=== PATIENT | male | born 1950 | race Caucasian/White ===

== ENCOUNTER 2016-09-28 17:44 | Inpatient (IN) | payer MEDICARE, BC ==
--- NOTE | ~2016-09-28 | OP ---
Record Of Operation [facility] [address] [place]. [address] NAME: AAKASH CLEMENT : 54 STATUS : DIS IN PAT#: [id number] AGE: 66 ADM/REG DATE : 09/28/16 MR#: [id number] REPORT SERV DATE: 10/09/16 DICTATED BY: AMBER MARRERO DATE: 10/09/16 REPORT STATUS : Draft TRANSCRIBED BY: MODL DATE: 10/09/16 DATE OF PROCEDURE: 10/04/2016 PREOPERATIVE DIAGNOSES: 1. Right foot abscess. 2. Right foot necrotic ulceration to the level of the deep fascia and flexor tendons. POSTOPERATIVE DIAGNOSES: 1. Right foot abscess. 2. Right foot necrotic ulceration to the level of the deep fascia and flexor tendons. PROCEDURE: 1. Right foot incision and drainage of deep space abscess. 2. Right full-thickness debridement of necrotic tissue down to the level of the flexor tendons. SURGEON: Erik BhattiPZion ANESTHESIA: General and local anesthetic. ESTIMATED BLOOD LOSS: Minimal. COMPLICATION: None. INJECTABLES: Approximately 10 mL of a 1:1 mixture of Xylocaine plain and 0.5% Marcaine plain. MATERIALS: Include 1/2-inch Nu-Gauze packing and 0 nylon, well-padded sterile dressing. PROCEDURE IN DETAIL: Under mild sedation, the patient was brought to the operating room and placed on the operating table in supine position. Following general anesthesia, local anesthesia was obtained about the patient's right foot and ankle. Right foot, ankle, and lower leg were scrubbed, prepped, and draped in usual aseptic manner. Attention was directed to the procedure. Procedure #1 is right foot incision and drainage. Attention was directed to the plantar aspect of the patient's right foot, where the necrotic ulceration was visualized. A linear 3 cm incision was made overlying the area of the plantar central medial aspect of the forefoot. The incision then was continued deep into the subcutaneous tissues, where severe liquified necrotic tissue was visualized. A scant purulence was noted throughout upon compression. Purulence was expressed within the deep central compartment region. Deep cultures were taken and at this time, 3000 mL of pulse lavage ensued within the incision site. After ensuring all purulence had been expressed, attention was directed to the next procedure. Next procedure was right foot full thickness debridement of necrotic liquified tissue down to the level of the flexor tendons. At this time, sharp debridement of all necrotic tissue was performed down to the level of the flexor tendons. After complete Record Of Operation [facility] [address]. [address] NAME: AAKASH CLEMENT : 54 STATUS : DIS IN PAT#: [id number] AGE: 66 ADM/REG DATE : 09/28/16 MR#: [id number] REPORT SERV DATE: 10/09/16 DICTATED BY: AMBER MARRERO DATE: 10/09/16 REPORT STATUS : Draft TRANSCRIBED BY: MODForest DATE: 10/09/16 excision sharply with a 15 blade and rongeur, attention was directed again to further lavage at that time. Next, the retention sutures were placed through the incision site with a central component left of the incision left open for deep packing with moistened 1/2-inch Nu Gauze packing. A well-padded sterile dressing was placed about the patient's right foot and ankle. At this time, Dr. Osuna, who was present at the time of closure continued on with his procedure for limb salvage. The patient tolerated the procedure well and Dr. Osuna will write postoperative orders for his side of things, as the patient was still under anesthesia at this time, a conclusion of my part of the procedure. Orders were written for strict nonweightbearing on the right side and elevation and antibiotics per Infectious Disease. I will follow up the patient on the floor. NEOW/VALDEMAR Medhat Marrero D.P.M. / [id number] CC: MD Mena Henry D.O. F.A.C.P.
--- NOTE | ~2016-09-28 | HP ---
History And Physical [facility] [address] [place]. [address] NAME: AAKASH CLEMENT : 54 STATUS : ADM IN PAT#: [id number] AGE: 66 ADM/REG DATE : 09/28/16 MR#: [id number] REPORT SERV DATE: 09/29/16 DICTATED BY: RAMSES AQUINO DATE: 09/29/16 REPORT STATUS : Draft TRANSCRIBED BY: MODL DATE: 09/29/16 DATE OF ADMISSION: 09/28/2016 CHIEF COMPLAINT: Right foot ulcer, sent from Dr. Zuñiga clinic. HISTORY OF PRESENT ILLNESS: The patient is a 66-year-old male with past history of insulin-dependent diabetes followed by Dr. Goldstein, on insulin pump, additionally CHF and coronary artery disease followed by Dr. Vega, ejection fraction 30%, CKD stage 3 to [address] Selby who presents after approximately a week of having increased swelling and ulcer formation in his lower right leg. The patient does have significant peripheral neuropathy, diabetic neuropathy, and typically having hard times with appreciating when infection occurs. He has had history of cellulitis but never had ulcer formation. Noticed symptoms happening few days ago and started trying with silver cream, anti-inflammatory topical but was having minimal improvement. The patient does additionally reports that he also has poor nail hygiene on his right big toe which could also be a source of infection. The patient does not report any pain, radiating symptoms such as chest pain, but last night he started noticing fevers up to 101.5 and nausea. No shortness of breath, diarrhea, has been fairly compliant with diet, doing well with his diabetic control with his insulin pump and his salt intake is fairly monitored with at bedside. The patient denies any improving symptoms of lower leg swelling but no worsening symptoms either. The patient reports that swelling continues to worsen on right leg greater than left, particularly the site with redness and erythema. The patient does have history of chronic venous stasis changes due to multiple surgeries on legs and trauma as well as vein stripping of right leg which additionally confounders for circulation issues. REVIEW OF SYSTEMS: For additional 10-point review of systems, negative for that noted in the HPI. PAST MEDICAL HISTORY: Systolic CHF, EF 30%; CABG, five-vessel; CKD 3-4; CAMILO; CPAP at home; diabetes type 2 on [address] pump[address] Dr[address] Goldstein for diabetes; Dr. Selby for CKD; Dr. Vega for coronary artery disease; and Dr. Zuñiga for PCP. SURGICAL HISTORY: Left ankle fracture repair, CABG five-vessel disease in 2002, drug-eluting stent, wisdom teeth in 80s. FAMILY HISTORY: Hypertension, coronary artery disease, and diabetes. SOCIAL HISTORY: , retired, disabled from [employer], 2 sons. No tobacco currently but quit many years ago. No alcohol or illicit's. ALLERGIES: PENICILLIN. HOME MEDICATIONS: Tylenol, ProAir, allopurinol, aspirin, Bumex, Coreg, Zyrtec, Plavix, Flonase, guaifenesin, hydralazine, insulin, Imdur, Claritin, multivitamin, and Crestor. History And Physical [address] [address] NAME: AAKASH CLEMENT : 54 STATUS : ADM IN [facility]#: [id number] AGE: 66 ADM/REG DATE : 09/28/16 MR#: [id number] REPORT SERV DATE: 09/29/16 DICTATED BY: RAMSES AQUINO DATE: 09/29/16 REPORT STATUS : Draft TRANSCRIBED BY: VALDEMAR DATE: 09/29/16 PHYSICAL EXAMINATION: VITAL SIGNS: The patient's blood pressure 151/61, temperature 101.1, pulse 109, respirations 18. GENERAL: Obese, but no acute distress. Calm, pleasant. HEAD: Normocephalic, atraumatic. NECK: Large neck. EYES: No scleral icterus. EOMI. ENT: Nares patent. Tongue midline. Moist mucous membranes. CHEST: Equal chest expansion. Respiratory, clear to auscultation. No wheezes. CV: Bilateral trace edema, right greater than left. Right being 1+ edema. Systolic ejection murmur with regular rate, mildly tachycardic. Cap refill less than 2 seconds. ABDOMEN: Central obesity, nontender, nondistended. Bowel sounds positive. MUSCULOSKELETAL: Moves all extremities x4. SKIN: Right foot under first metatarsal base ulcer without drainage currently with what appears to be 4 spots of inflammation with erythema encompassing approximately 40-50% of right-side lower foot and erythema going up to ankle. Left side also has chronic venous stasis changes. NEURO: Alert and oriented, moves all extremities. Sensation decreased chronically in lower extremities but moves all extremities. PSYCH: Appropriate mood and affect. LABS: Wound culture pending. CMP: Procalcitonin 0.21. Sodium 141, potassium 3.9, BUN and creatinine 15 and 2.14, glucose 190, chloride 102. LFTs within normal limits. CBC: WBC count 13.4, H and H 14.3 and 43.0, platelets 220. ASSESSMENT AND PLAN: 1. Right foot ulcer, diabetic. 2. Diabetes type 2, insulin dependent. 3. Congestive heart failure. 4. Chronic kidney disease stage 3, 4. 5. Coronary artery disease. 6. Obstructive sleep apnea. 7. Sepsis. PLAN: 1. For right foot ulcer, Azactam, vancomycin given penicillin history. Consult Dr. Diego for possible surgical evaluation. We will defer to Dr. Diego's guidance for additional imaging if required. 2. Diabetes type 2. Insulin pump. Continue diabetic education. 3. CHF, chronic, stable. Follows with Dr. Vega. EF 30%. Additionally, has coronary artery disease with five-vessel CABG. Monitor fluid balance. 4. CKD stage 3 to 4, stable. Follows with Dr. Selby. Monitor. 5. CAMILO. CPAP at home. Continue at night. 6. Sepsis. IV antibiotics. Does have CHF history. So monitor IV fluid value, sepsis criteria included right foot with fever, leukocytosis, tachycardia. All questions answered. Patient family at bedside. History And Physical [address] [address] NAME: AAKASH CLEMENT : 54 STATUS : ADM IN [facility]#: [id number] AGE: 66 ADM/REG DATE : 09/28/16 MR#: [id number] REPORT SERV DATE: 09/29/16 DICTATED BY: RAMSES AQUINO DATE: 09/29/16 REPORT STATUS : Draft TRANSCRIBED BY: MODL DATE: 09/29/16 DDN/VALDEMAR Ramses Aquino MD / [id number] CC: MD Mena Del Cid D.O. F.A.C.P.
--- NOTE | ~2016-09-28 | IDS ---
Interim Discharge Summary [facility] [address] [place]. [address] NAME: AAKASH CLEMENT : 54 STATUS : ADM IN PAT#: [id number] AGE: 66 ADM/REG DATE : 09/28/16 MR#: [id number] REPORT SERV DATE: 10/04/16 DICTATED BY: RAMSES AQUINO DATE: 10/04/16 REPORT STATUS : Draft TRANSCRIBED BY: MODL DATE: 10/04/16 ADMISSION DATE: 09/28/2016 DISCHARGE DATE: 10/03/2016 CURRENT DIAGNOSES: 1. Right foot diabetic ulcer with polymicrobial infection of Citrobacter Morganella strep species. 2. Vascular insufficient POA, but new diagnosis. 3. Systolic heart failure, chronic. 4. Coronary artery disease with 5-vessel coronary artery bypass graft history. 5. Obstructive sleep apnea on continuous positive airway pressure. 6. Bacterial sepsis present on arrival. CONSULTATIONS: 1. Erik BhattiP.Kilo, Podiatry. 2. Sagar Osuna M.D., Vascular Surgery. CURRENT HOSPITAL COURSE: The patient is a very pleasant 66-year-old male with past medical history of Crohn's disease, systolic heart failure, obstructive sleep apnea on CPAP, insulin-dependent diabetes on insulin pump, who presents after having progressive right foot ulcer at the base of the first toe, had persistent drainage and redness up to ankle. The patient was started on broad antibiotics for diabetic foot ulcer. Dr. Croft was consulted, has done multiple bedside debridements for drainage. Vascular integrity was evaluated and required Vascular Surgery evaluation to have further workup intraoperatively in correlation with Dr. Croft for vascular arteriogram and subsequent debridement intraoperatively as the patient was noted to have vascular insufficiency based on Dopplers. The patient does have history of chronic systolic heart failure, and coronary artery disease which have remained stable intraoperatively and continued on home medications. CAMILO, was continued on CPAP. The patient does continue the insulin pump with insulin-dependent diabetes with good control while inpatient. The patient's bacterial sepsis was present on arrival and symptoms have improved throughout hospital stay with continued improvement of leukocytosis, now afebrile. No tachycardia and no tachypnea. DISPOSITION: Pending surgical procedure and response. DDN/MODL Ramses Aquino MD / [id number] CC: Ramses Aquino MD Interim Discharge Summary [address] [place]. [address] NAME: AAKASH CLEMENT : 54 STATUS : ADM IN PAT#: [id number] AGE: 66 ADM/REG DATE : 09/28/16 MR#: [id number] REPORT SERV DATE: 10/04/16 DICTATED BY: RAMSES AQUINO DATE: 10/04/16 REPORT STATUS : Draft TRANSCRIBED BY: MODL DATE: 10/04/16 Mena Zuñiga D.O. F.A.C.P.
--- NOTE | ~2016-09-28 | CN ---
Consultation Report [facility] [address] [place]. [address] NAME: AAKASH CLEMENT : 54 STATUS : ADM IN PAT#: [id number] AGE: 66 ADM/REG DATE : 09/28/16 MR#: [id number] REPORT SERV DATE: 09/30/16 DICTATED BY: AMBER MARRERO DATE: 09/30/16 REPORT STATUS : Draft TRANSCRIBED BY: MODL DATE: 09/30/16 CONSULTATION DATE OF CONSULTATION: 09/29/2016 REASON FOR CONSULTATION: Right foot cellulitis/abscess. HISTORY OF PRESENT ILLNESS: The patient is a 66-year-old male with an approximate "two-week history of an ulceration to the plantar aspect of his right foot." The patient relates previous attempts at debriding his own callus, and over the past two weeks, has developed redness, streaking, fevers, nausea, and vomiting. He was subsequently admitted after seeing his primary care physician. PAST MEDICAL HISTORY: Includes coronary artery disease, congestive heart failure, diabetes, chronic renal insufficiency, obesity. MEDICATIONS: Lengthy list of medications were reviewed in the chart. ALLERGIES: PENICILLIN. FAMILY HISTORY: Includes heart disease, diabetes. SOCIAL HISTORY: The patient is disabled, is , previous smoker. No history of alcohol or illicit drug use. REVIEW OF SYSTEMS: No other pertinent findings on review of systems. Currently, no nausea, vomiting, fever, or chills. No current chest pain. PHYSICAL EXAMINATION: GENERAL: The patient is seen at bedside, resting comfortably. Alert and oriented x3. VITAL SIGNS: The patient is currently afebrile. Vital signs stable. HEENT: Normocephalic, atraumatic. No visible drainage. LUNGS: Unlabored breathing with normal respiratory effort. CARDIOVASCULAR: Right pulses are nonpalpable to the dorsalis pedis possibly due to the significant swelling to the dorsum of his foot. His posterior tib pulse can be palpated at approximately 1/4. Capillary refill time is less than 3 seconds. Regular rate. ABDOMEN: The patient is obese. DERMATOLOGICAL: Plantar right foot what appears to be superficial abscess and callus formation to the first metatarsal head with the epidermolysis/abscess oriented toward the second metatarsal. There is significant edema and proximal streaking past the ankle. There is no soft tissue crepitus. At this time, bedside debridement ensued. Deroofing of the blister with significant creamy purulence was expressed. Upon deroofing the superficial blister, deeper ulceration and what appeared to be a tracking abscess were visualized. Consultation Report [facility] [address] [place]. [address] NAME: AAKASH CLEMENT : 54 STATUS : ADM IN [facility]#: [id number] AGE: 66 ADM/REG DATE : 09/28/16 MR#: [id number] REPORT SERV DATE: 09/30/16 DICTATED BY: AMBER MARRERO DATE: 09/30/16 REPORT STATUS : Draft TRANSCRIBED BY: VALDEMAR DATE: 09/30/16 Sterile forceps were placed within the wound, and sharp debridement of any necrotic tissue was performed. Purulence was expressed, and upon compression of the foot, approximately 2 mL of purulence was noted. From compression, again after sterile lavage with saline was performed, there was no notable purulence expressed following the incision and drainage and debridement. All necrotic tissue was debrided sharply with pickups and scissors. There was no probing to bone appreciated. Probing was angled from plantar proximal to distal at approximately 1 cm. There was no odor appreciated. NEUROLOGIC: Epicritic sensation is absent bilaterally. LABORATORY DATA: White count 13.4. Blood culture is negative at this point. ASSESSMENT: Right foot ulceration/abscess, eval for osteomyelitis, significant comorbidities. PLAN: At this time, at bedside, sharp debridement with incision and drainage was performed with deep cultures taken including aerobic, anaerobic, acid-fast, fungal gram stain. Lavage with sterile normal saline and a sterile dressing was placed about the patient's right foot and ankle. MRI with contrast was ordered as well as arterial Dopplers to evaluate his vascular status. Infectious Disease order was also written and I will follow the patient. ALLEN/VALDEMAR Medhat Marrero D.P.M. / [id number] CC: MD Mena Del Cid D.O. F.A.C.P.
--- NOTE | ~2016-09-28 | OP ---
Record Of Operation [facility] [address] [place]. [address] NAME: AAKASH CLEMENT : 54 STATUS : ADM IN PAT#: [id number] AGE: 66 ADM/REG DATE : 09/28/16 MR#: [id number] REPORT SERV DATE: 10/07/16 DICTATED BY: SAGAR OSUNA DATE: 10/05/16 REPORT STATUS : Draft TRANSCRIBED BY: MODL DATE: 10/05/16 DATE OF PROCEDURE: 10/04/2016 PREPROCEDURE DIAGNOSES: Nonhealing wounds right foot diabetic, diabetic foot infection. PROCEDURE PERFORMED: 1. Diagnostic angiogram, right lower extremity. 2. Antegrade superficial femoral artery catheterization with angiography, selective catheterization of popliteal artery with angiography. SURGEON: Sagar Osuna M.D. ANESTHESIA: General. COMPLICATIONS: None. INDICATION FOR PROCEDURE: Secondary to this very pleasant, 66-year-old patient of Dr. Trevor Croft being evaluated for a nonhealing wound at the base of the right foot. He is a diabetic with diabetic foot infection. The patient is immediately status post I and D of abscess of the foot. DETAILS OF THE PROCEDURE: The patient was then brought into the endovascular operating room, placed in supine position, prepped and draped in routine sterile fashion with attention to the right leg. The I and D of the abscess was then performed by Dr. Trevor Croft where I assisted. Please see Dr. Croft's notes for complete information. Next, the patient was then re-prepped and draped in routine sterile fashion with attention to the entire right leg and the superficial margin cannulated with a micropuncture needle followed by a wire and a sheath. Arteriogram then demonstrated widely patent proximal SFA. Sheath was then placed. Catheterization was then performed, passing a catheter into the popliteal artery. The arteriogram demonstrated proximal and distal SFA widely patent, proximal and distal popliteal patent, anterior tibial and posterior tibial, patent to lower extremity with PT dominant into the foot, filling the medial and lateral plantar arteries adequately. Flow was also to the pedal arch. This was successful, and this showed no evidence of obstructive pathology in the arterial system. At this point, wires, catheters, and sheaths were then removed. The right groin was enclosed with an Angio-Seal; however, this failed to deploy. There was no Angio-Seal that is deployed in the patient. Direct pressure was then held for 15 minutes. Pressure dressing was applied. The patient tolerated the procedure well. HAL/VALDEMAR Sagar Osuna M.D. / [id number]
--- NOTE | ~2016-09-28 | CN ---
Consultation Report [facility] [address] [place]. [address] NAME: AAKASH CLEMENT : 54 STATUS : ADM IN PAT#: [id number] AGE: 66 ADM/REG DATE : 09/28/16 MR#: [id number] REPORT SERV DATE: 09/30/16 DICTATED BY: MURALI SMALLWOOD DATE: 09/29/16 REPORT STATUS : Draft TRANSCRIBED BY: MODL DATE: 09/29/16 INFECTIOUS DISEASE CONSULTATION DATE OF CONSULTATION: 09/29/2016 REFERRING PHYSICIAN: Dr. Croft, Podiatry. REASON FOR REFERRAL: Evaluation and treatment of foot infection. HISTORY OF PRESENT ILLNESS: The patient is a 66-year-old male with a history of coronary artery disease, congestive heart failure, diabetes mellitus, chronic renal insufficiency, morbid obesity. He developed an ulcer on his plantar right foot after he tried to remove a callus, it is over the first and second metatarsal heads. Recently, it became more red. He developed fevers, nausea, vomiting, and redness that was beginning to go up his calf, so came in and was admitted yesterday. A culture was taken, but not submitted until late in the evening, so no results are back yet, other than the Gram stain which does show a variety of bacteria to include gram-positive cocci, gram-positive bacilli, and gram-negative bacilli. He was started empirically on vancomycin, aztreonam, and Flagyl. He reports an allergy to penicillin that he says, he took it once and his "throat began to close up," but he has taken several different kinds of cephalosporins without incident. He denies any trauma or wounds to the foot, other than what has been previously mentioned. There have been no unusual environmental exposures, and he was on no antibiotics prior to coming in. It has been debrided at the bedside by Dr. Croft. MRI has been ordered to evaluate for deeper disease. PAST MEDICAL HISTORY: Otherwise, unremarkable. MEDICATIONS: As described above. ALLERGIES: DESCRIBED ABOVE. SOCIAL HISTORY: He is currently disabled and not working. He is . He smoked in the past, but stopped many years ago and has no history of alcohol or substance abuse. FAMILY HISTORY: Coronary artery disease and diabetes. PHYSICAL EXAMINATION: GENERAL: Nontoxic adult male, in no acute distress. Alert and oriented x3. VITAL SIGNS: His temperature when he arrived was 101.1, but decreased after that, it is 98.1 at present with a pulse of 77, respirations 18, blood pressure 146/78, weight 145 kg. HEENT: Sclerae clear. No oral lesions. NECK: Supple. LUNGS: Clear. HEART: Regular rate and rhythm. ABDOMEN: Soft and nontender. Positive bowel sounds. Consultation Report [address] [address] NAME: AAKASH CLEMENT : 54 STATUS : ADM IN [facility]#: [id number] AGE: 66 ADM/REG DATE : 09/28/16 MR#: [id number] REPORT SERV DATE: 09/30/16 DICTATED BY: MURALI SMALLWOOD DATE: 09/29/16 REPORT STATUS : Draft TRANSCRIBED BY: VALDEMAR DATE: 09/29/16 EXTREMITIES: The right foot shows the ulcer as previously mentioned, about 3-4 cm wide, it is now clean after being debrided. Redness goes up to the top of his ankle. There are no other open lesions noted. LABORATORY DATA: His white blood cell count 13.4, hematocrit 43, platelets 220, unremarkable differential on the white blood cell count. BUN and creatinine 50 and 2.14. Blood cultures done also and are negative thus far. IMPRESSION: Diabetic foot infection, there is probably mixed kip, uncertain at this time if it is involving bone. RECOMMENDATIONS: 1. Follow up the cultures tomorrow. 2. Follow up the MRI once that is done and if positive for osteomyelitis, he will likely need more extensive debridement. 3. We will cover with vancomycin and Flagyl as has been ordered, but we will use cefepime instead of aztreonam since it is a better drug and I do not think he should have a problem with cephalosporins. 4. Finally, I will follow the patient with you. I appreciate very much your consulting on this patient. LUIS ALFREDO/VALDEMAR Murali Smallwood M.D. / [id number] CC: MD Mena Del Cid D.O. F.A.C.P. C. Trevor Wamack, D.P.M.
--- NOTE | ~2016-09-28 | DS ---
Discharge Summary [facility] [address] [place]. [address] NAME: AAKASH CLEMENT : 54 STATUS : DIS IN PAT#: [id number] AGE: 66 ADM/REG DATE : 09/28/16 MR#: [id number] REPORT SERV DATE: 10/11/16 DICTATED BY: JOHN GONZALEZ DATE: 10/07/16 REPORT STATUS : Draft TRANSCRIBED BY: MODL DATE: 10/07/16 ADMISSION DATE: 09/28/2016 DISCHARGE DATE: 10/07/2016 REASON FOR ADMISSION: Right foot ulcer, sent from Dr. Rosario's clinic. HPI: Please refer Dr. Han's history and physical dated 09/29/2016 for complete details on the patient's admission. In brief, the patient was admitted to the Hospitalist Service for a diabetic foot ulcer. Hospital course fromadmission to 10/03/2016, please refer to Dr. Han's interim summary. In brief, the patient was diagnosed with a diabetic foot ulcer with polymicrobial infection along with some vascular insufficiency. Dr. Trevor Croft with Podiatry had done an I and D, recommended Wound Care to place a wound VAC. Dr. Allison with Infectious Disease had already been consulted and recommended doing two weeks of IV Rocephin. Hospital course from 10/04/2016 to present, I assumed care of this patient from Dr. Han, at which point, his diabetic foot ulcer had been stable. Dr. Allison had written his final recommendations of doing IV Rocephin at home through 10/19/2016, a PICC line was placed, a wound VAC was also placed, and we are awaiting [facility] to deliver a wound VAC for home. Home health has been arranged. The patient has reached maximal hospitalization. He will be discharged to home today in a stable condition. DISCHARGE DIAGNOSES: Right foot diabetic ulcer, status post I and D; vascular insufficiency; chronic systolic heart failure; coronary artery disease, status post 5-vessel bypass; obstructive sleep apnea, on CPAP; sepsis secondary to diabetic foot ulcer, now resolved; insulin for diabetes, on an insulin pump, stable; CKD stage 3. CONSULTANTS: Dr. Trevor Croft, Dr. Sagar Osuan, Dr. Allison with Infectious Disease. IMAGING: Includes MRI of the lower extremity which showed no evidence of underlying osteomyelitis. Lower extremity Doppler which showed mild peripheral arterial disease. DISCHARGE MEDICATIONS: List include Tylenol, allopurinol 150 mg every morning, aspirin 81 mg once a day, Bumex 2 mg twice a day, carvedilol 25 mg twice a day, Plavix 75 mg every morning, Flonase daily, guaifenesin, insulin lispro pump, isosorbide mononitrate 30 mg twice a day, loratadine, Zyrtec, multivitamin, hydralazine 25 mg twice a day, albuterol p.r.n., Crestor 10 mg every morning, Rocephin 2 g once a day through 10/19/2016. He will follow up with Dr. Croft's clinic, Dr. Allison. He will be discharged to home today in stable condition with a PICC line. Spending over 30 minutes of discharge planning and coordination of care. DICTATED BY: John Gonzalez MD Discharge Summary [address] [address] NAME: AAKASH CLEMENT : 54 STATUS : DIS IN PAT#: [id number] AGE: 66 ADM/REG DATE : 09/28/16 MR#: [id number] REPORT SERV DATE: 10/11/16 DICTATED BY: JOHN GONZALEZ DATE: 10/07/16 REPORT STATUS : Draft TRANSCRIBED BY: VALDEMAR DATE: 10/07/16 JAMEE John Gonzalez MD / [id number] CC: MD Mena Henry D.O. F.A.C.P. C. Jason Wamack, D.P.M. Mark Anderson, M.D.
[~2016-09-28 17:44] MED LIST: ACET500CAP PO; APRES25 PO; ASA5GR PO; ASAB PO; ASABAYER PO; BUM2 PO; CENTRUM PO; COREG12 PO; COREG25 PO; CRESTOR10 PO; DIOVAN HCT PO; DYAZIDE1 CAP PO; FENESIN IR400 MG PO; FISH-EPA1000 MG PO; FLONASE NAS; GLUCXL5 PO; HUMAPUMP SC; HYZAAR1 TAB PO; IMDUR30 PO; KRILL OIL; L40 PO; LEVEMIR SC; LOP25 PO; MUCINEX600 MG PO; MULTIPLE VIT PO; MULTIVIT/MIN PO; NITROSTAT0.4 MG SL; NOVLOGPUMP SC; NOVOLOG SC; PLAVIX PO; POT GLUCONAT550 M1 PO; PRAVACHOL40 MG PO; PROAIR HFA INH; TRILIPIX45 MG PO; VITAMIN D31000 UNIT PO; Z100 PO; Z300 PO; [UNRECOGNIZED DRUG - REMARK]; [UNRECOGNIZED DRUG - REMARK]
[2016-09-28] MEDS ORDERED: COREG25 PO ×2 (18:33→20:31)
[2016-09-28] MEDS ORDERED: PLAVIX PO ×2 (18:34→20:32)
[2016-09-28] MEDS ORDERED: CLARIT10 PO ×2 (18:44→20:34)
[2016-09-28] MEDS ORDERED: ZYRTEC ALLGY10 MG PO ×2 (18:45→20:32)
[2016-09-28] MEDS ORDERED: PROAIR HFA INH (20:30)
[2016-09-28] MEDS ORDERED: ACET500CAP PO (20:30)
[2016-09-28] MEDS ORDERED: ASAB PO (20:31)
[2016-09-28] MEDS ORDERED: BUM2 PO (20:31)
[2016-09-28] MEDS ORDERED: Z300 PO (20:31)
[2016-09-28] MEDS ORDERED: FLONASE NAS (20:32)
[2016-09-28] MEDS ORDERED: APRES25 PO (20:33)
[2016-09-28] MEDS ORDERED: HUMAPUMP SC (20:33)
[2016-09-28] MEDS ORDERED: CRESTOR10 PO (20:34)
[2016-09-28] MEDS ORDERED: MULTIVIT/MIN PO (20:34)
[2016-09-28] MEDS ORDERED: IMDUR30 PO (20:34)
[2016-09-28] MEDS ORDERED: FENESIN IR400 MG PO (20:35)
[2016-09-28 22:21] LABS: BASOPHILS 0.1 %; BASOPHILS ABSOLUTE 0.02 10/3/uL (0.0-0.16); EOSINOPHILS 1.4 %; EOSINOPHILS ABSOLUTE 0.19 10/3/uL (0.0-0.53); HEMOGLOBIN 14.3 g/dL (13.6-17.8); IMMATURE GRANULOCYTES 0.2 %; IMMATURE GRANULOCYTES ABSOLUTE 0.03 10/3/uL (0.0-0.11); LYMPHOCYTES 9.3 %; LYMPHOCYTES ABSOLUTE 1.25 10/3/uL (0.67-4.30); MANUAL DIFF NO %; MEAN CORPUS HGB CONC 33.3 g/dL (32.0-36.0); MEAN CORPUSCULAR HEMOGLOB 29.4 pg (26.0-34.0); MEAN CORPUSCULAR VOLUME 88.5 fL (80-100); MEAN PLATELET VOLUME 10.7 fL (9.2-13.0); MONOCYTES 7.3 %; MONOCYTES ABSOLUTE 0.98 10/3/uL (0.21-1.20); NEUTROPHILS 81.7 %; NEUTROPHILS ABSOLUTE 10.92 10/3/uL (2.02-8.40); PLATELET COUNT 220 10/3/uL (150-400); RBC DISTRIBUTION WIDTH 15.1 % (12.0-16.0); RED CELL COUNT 4.86 10/6/uL (4.7-6.1); WHITE BLOOD CELLS 13.4 10/3/uL (4.5-10.5)
[2016-09-28 22:36] LABS: ALBUMIN 3.6 G/DL (3.5-5.0); BUN (BLOOD UREA NITROGEN) 50 MG/DL (6-23); CALCIUM, SERUM 9.2 MG/DL (8.5-10.4); CHLORIDE, SERUM 102 MMOL/L (96-112); CO2 (CARBON DIOXIDE) 32 MMOL/L (24-34); CREATININE 2.14 MG/DL (0.70-1.30); GFR AFRICAN AMERICAN 37 ML/MIN (>=60); GFR NON AFRICAN AMERICAN 32 ML/MIN (>=60); GLOBULIN 3.7 G/DL (2.5-4.1); GLUCOSE, SERUM 190 MG/DL (60-99); POTASSIUM, SERUM 3.9 MMOL/L (3.5-5.3); SGOT(AST) 19 U/L (5-40); SGPT(ALT) 24 U/L (5-65); SODIUM, SERUM 141 MMOL/L (135-148); TOTAL BILIRUBIN 0.6 MG/DL (0-1.2); TOTAL PROTEIN 7.3 G/DL (6.0-8.5)
[2016-09-28 22:37] LABS: ALKALINE PHOSPHATASE 101 U/L (45-117)
[2016-09-28 22:54] LABS: PROCALCITONIN 0.21 ng/mL (<0.5)
[2016-09-30 07:09] LABS: BASOPHILS 0.2 %; BASOPHILS ABSOLUTE 0.02 10/3/uL (0.0-0.16); BUN (BLOOD UREA NITROGEN) 49 MG/DL (6-23); CHLORIDE, SERUM 105 MMOL/L (96-112); CO2 (CARBON DIOXIDE) 30 MMOL/L (24-34); CREATININE 2.03 MG/DL (0.70-1.30); EOSINOPHILS 4.3 %; EOSINOPHILS ABSOLUTE 0.57 10/3/uL (0.0-0.53); GFR AFRICAN AMERICAN 39 ML/MIN (>=60); GFR NON AFRICAN AMERICAN 34 ML/MIN (>=60); HEMATOCRIT 41.6 % (40.0-51.0); HEMOGLOBIN 13.7 g/dL (13.6-17.8); IMMATURE GRANULOCYTES 0.3 %; IMMATURE GRANULOCYTES ABSOLUTE 0.04 10/3/uL (0.0-0.11); LYMPHOCYTES 12.9 %; MEAN CORPUS HGB CONC 32.9 g/dL (32.0-36.0); MEAN CORPUSCULAR HEMOGLOB 28.9 pg (26.0-34.0); MEAN CORPUSCULAR VOLUME 87.8 fL (80-100); MEAN PLATELET VOLUME 10.4 fL (9.2-13.0); MONOCYTES 12.7 %; MONOCYTES ABSOLUTE 1.67 10/3/uL (0.21-1.20); NEUTROPHILS 69.6 %; NEUTROPHILS ABSOLUTE 9.14 10/3/uL (2.02-8.40); PLATELET COUNT 211 10/3/uL (150-400); POTASSIUM, SERUM 4.3 MMOL/L (3.5-5.3); RBC DISTRIBUTION WIDTH 15.2 % (12.0-16.0); RED CELL COUNT 4.74 10/6/uL (4.7-6.1); SODIUM, SERUM 143 MMOL/L (135-148); WHITE BLOOD CELLS 13.1 10/3/uL (4.5-10.5)
[2016-09-30 07:10] LABS: MANUAL DIFF NO %
[2016-09-30 07:11] LABS: GLUCOSE, SERUM 135 MG/DL (60-99)
[2016-10-01 07:00] LABS: BASOPHILS 0.4 %; BASOPHILS ABSOLUTE 0.05 10/3/uL (0.0-0.16); EOSINOPHILS 6.8 %; EOSINOPHILS ABSOLUTE 0.77 10/3/uL (0.0-0.53); HEMATOCRIT 43.4 % (40.0-51.0); HEMOGLOBIN 14.2 g/dL (13.6-17.8); IMMATURE GRANULOCYTES 0.4 %; IMMATURE GRANULOCYTES ABSOLUTE 0.04 10/3/uL (0.0-0.11); LYMPHOCYTES 12.1 %; LYMPHOCYTES ABSOLUTE 1.36 10/3/uL (0.67-4.30); MEAN CORPUS HGB CONC 32.7 g/dL (32.0-36.0); MEAN CORPUSCULAR HEMOGLOB 29.1 pg (26.0-34.0); MEAN CORPUSCULAR VOLUME 88.9 fL (80-100); MEAN PLATELET VOLUME 10.3 fL (9.2-13.0); MONOCYTES 11.9 %; MONOCYTES ABSOLUTE 1.34 10/3/uL (0.21-1.20); NEUTROPHILS 68.4 %; NEUTROPHILS ABSOLUTE 7.72 10/3/uL (2.02-8.40); PLATELET COUNT 237 10/3/uL (150-400); RBC DISTRIBUTION WIDTH 14.9 % (12.0-16.0); RED CELL COUNT 4.88 10/6/uL (4.7-6.1); WHITE BLOOD CELLS 11.3 10/3/uL (4.5-10.5)
[2016-10-01 07:10] LABS: MANUAL DIFF NO %
[2016-10-01 07:20] LABS: BUN (BLOOD UREA NITROGEN) 50 MG/DL (6-23); CALCIUM, SERUM 9.3 MG/DL (8.5-10.4); CHLORIDE, SERUM 104 MMOL/L (96-112); CO2 (CARBON DIOXIDE) 32 MMOL/L (24-34); CREATININE 1.92 MG/DL (0.70-1.30); GFR AFRICAN AMERICAN 42 ML/MIN (>=60); GFR NON AFRICAN AMERICAN 36 ML/MIN (>=60); GLUCOSE, SERUM 91 MG/DL (60-99); POTASSIUM, SERUM 4.1 MMOL/L (3.5-5.3); SODIUM, SERUM 141 MMOL/L (135-148)
[2016-10-03 08:34] LABS: BASOPHILS 0.6 %; BASOPHILS ABSOLUTE 0.07 10/3/uL (0.0-0.16); EOSINOPHILS 7.3 %; EOSINOPHILS ABSOLUTE 0.81 10/3/uL (0.0-0.53); HEMATOCRIT 44.5 % (40.0-51.0); HEMOGLOBIN 14.9 g/dL (13.6-17.8); IMMATURE GRANULOCYTES 1.3 %; IMMATURE GRANULOCYTES ABSOLUTE 0.15 10/3/uL (0.0-0.11); LYMPHOCYTES ABSOLUTE 1.68 10/3/uL (0.67-4.30); MANUAL DIFF NO %; MEAN CORPUS HGB CONC 33.5 g/dL (32.0-36.0); MEAN CORPUSCULAR HEMOGLOB 29.4 pg (26.0-34.0); MEAN CORPUSCULAR VOLUME 87.8 fL (80-100); MEAN PLATELET VOLUME 10.4 fL (9.2-13.0); MONOCYTES 9.1 %; MONOCYTES ABSOLUTE 1.02 10/3/uL (0.21-1.20); NEUTROPHILS 66.7 %; NEUTROPHILS ABSOLUTE 7.44 10/3/uL (2.02-8.40); PLATELET COUNT 243 10/3/uL (150-400); RED CELL COUNT 5.07 10/6/uL (4.7-6.1); WHITE BLOOD CELLS 11.2 10/3/uL (4.5-10.5)
[2016-10-03 08:46] LABS: BUN (BLOOD UREA NITROGEN) 49 MG/DL (6-23); CALCIUM, SERUM 9.4 MG/DL (8.5-10.4); CHLORIDE, SERUM 106 MMOL/L (96-112); CO2 (CARBON DIOXIDE) 25 MMOL/L (24-34); CREATININE 1.73 MG/DL (0.70-1.30); GFR AFRICAN AMERICAN 47 ML/MIN (>=60); GFR NON AFRICAN AMERICAN 41 ML/MIN (>=60); GLUCOSE, SERUM 159 MG/DL (60-99); SODIUM, SERUM 142 MMOL/L (135-148)
[2016-10-04 06:56] LABS: BASOPHILS 0.6 %; BASOPHILS ABSOLUTE 0.07 10/3/uL (0.0-0.16); EOSINOPHILS 6.1 %; EOSINOPHILS ABSOLUTE 0.69 10/3/uL (0.0-0.53); HEMATOCRIT 44.7 % (40.0-51.0); HEMOGLOBIN 14.6 g/dL (13.6-17.8); IMMATURE GRANULOCYTES 1.5 %; IMMATURE GRANULOCYTES ABSOLUTE 0.17 10/3/uL (0.0-0.11); LYMPHOCYTES 15.8 %; LYMPHOCYTES ABSOLUTE 1.79 10/3/uL (0.67-4.30); MEAN CORPUS HGB CONC 32.7 g/dL (32.0-36.0); MEAN CORPUSCULAR HEMOGLOB 29.1 pg (26.0-34.0); MEAN PLATELET VOLUME 10.1 fL (9.2-13.0); MONOCYTES 8.9 %; MONOCYTES ABSOLUTE 1.01 10/3/uL (0.21-1.20); NEUTROPHILS 67.1 %; NEUTROPHILS ABSOLUTE 7.63 10/3/uL (2.02-8.40); PLATELET COUNT 243 10/3/uL (150-400); RBC DISTRIBUTION WIDTH 14.9 % (12.0-16.0); RED CELL COUNT 5.02 10/6/uL (4.7-6.1); WHITE BLOOD CELLS 11.4 10/3/uL (4.5-10.5)
[2016-10-04 07:00] LABS: INTERNATIONAL NORMAL RATI 1.1 UNITS (-); PROTIME (NOT ORD) 13.7 SEC (12.0-14.5)
[2016-10-04 07:01] LABS: MANUAL DIFF NO %
[2016-10-04 07:11] LABS: CALCIUM, SERUM 9.6 MG/DL (8.5-10.4); CHLORIDE, SERUM 108 MMOL/L (96-112); CO2 (CARBON DIOXIDE) 27 MMOL/L (24-34); CREATININE 1.53 MG/DL (0.70-1.30); GFR AFRICAN AMERICAN 55 ML/MIN (>=60); GFR NON AFRICAN AMERICAN 47 ML/MIN (>=60); SODIUM, SERUM 144 MMOL/L (135-148)
[2016-10-04 07:12] LABS: BUN (BLOOD UREA NITROGEN) 40 MG/DL (6-23); GLUCOSE, SERUM 84 MG/DL (60-99)
[2016-10-05 06:46] LABS: BASOPHILS 0.3 %; BASOPHILS ABSOLUTE 0.04 10/3/uL (0.0-0.16); EOSINOPHILS 2.4 %; EOSINOPHILS ABSOLUTE 0.37 10/3/uL (0.0-0.53); IMMATURE GRANULOCYTES ABSOLUTE 0.16 10/3/uL (0.0-0.11); LYMPHOCYTES 13.2 %; LYMPHOCYTES ABSOLUTE 2.05 10/3/uL (0.67-4.30); MEAN CORPUS HGB CONC 32.7 g/dL (32.0-36.0); MEAN CORPUSCULAR VOLUME 88.7 fL (80-100); MEAN PLATELET VOLUME 9.9 fL (9.2-13.0); MONOCYTES 7.5 %; MONOCYTES ABSOLUTE 1.16 10/3/uL (0.21-1.20); NEUTROPHILS 75.6 %; NEUTROPHILS ABSOLUTE 11.74 10/3/uL (2.02-8.40); PLATELET COUNT 251 10/3/uL (150-400); RBC DISTRIBUTION WIDTH 15.2 % (12.0-16.0); WHITE BLOOD CELLS 15.5 10/3/uL (4.5-10.5)
[2016-10-05 06:48] LABS: HEMATOCRIT 35.2 % (40.0-51.0); HEMOGLOBIN 11.5 g/dL (13.6-17.8); MANUAL DIFF NO %; RED CELL COUNT 3.97 10/6/uL (4.7-6.1)
[2016-10-05 06:58] LABS: BUN (BLOOD UREA NITROGEN) 38 MG/DL (6-23); CALCIUM, SERUM 9.2 MG/DL (8.5-10.4); CHLORIDE, SERUM 108 MMOL/L (96-112); CO2 (CARBON DIOXIDE) 28 MMOL/L (24-34); CREATININE 1.86 MG/DL (0.70-1.30); GFR AFRICAN AMERICAN 43 ML/MIN (>=60); GFR NON AFRICAN AMERICAN 37 ML/MIN (>=60); POTASSIUM, SERUM 4.6 MMOL/L (3.5-5.3); SODIUM, SERUM 144 MMOL/L (135-148)
[2016-10-05 06:59] LABS: GLUCOSE, SERUM 143 MG/DL (60-99)
[2016-10-07] MEDS ORDERED: FLAG500TAB PO (11:59)
[2016-10-07] MEDS ORDERED: ROCEPHIN2 G2 IV (12:00)
== END 2016-10-07 13:22 | disposition home health service (06) | DRG 854 ==
LOC: 4SO 17:44
PROVIDERS: Podiatrist Foot & Ankle Surgery; Student in an Organized Health Care Education/Training Program
DX: A40.8 Other streptococcal sepsis (principal); I13.0 Hypertensive heart and chronic kidney disease with heart failure and stage 1 through stage 4 chronic kidney disease, or unspecified chronic kidney disease; E11.22 Type 2 diabetes mellitus with diabetic chronic kidney disease; I50.22 Chronic systolic (congestive) heart failure; L03.115 Cellulitis of right lower limb; Z68.41 Body mass index [BMI] 40.0-44.9, adult; L02.611 Cutaneous abscess of right foot; E11.621 Type 2 diabetes mellitus with foot ulcer; N18.3 Chronic kidney disease, stage 3 (moderate); I25.10 Atherosclerotic heart disease of native coronary artery without angina pectoris; G47.33 Obstructive sleep apnea (adult) (pediatric); E11.628 Type 2 diabetes mellitus with other skin complications; Z87.891 Personal history of nicotine dependence; Z88.0 Allergy status to penicillin; I87.8 Other specified disorders of veins; Z95.1 Presence of aortocoronary bypass graft; Z95.5 Presence of coronary angioplasty implant and graft; Z79.82 Long term (current) use of aspirin; Z79.02 Long term (current) use of antithrombotics/antiplatelets; Z79.4 Long term (current) use of insulin; E66.01 Morbid (severe) obesity due to excess calories; M10.9 Gout, unspecified; E78.5 Hyperlipidemia, unspecified
CPT/HCPCS: 11043; 36245; 36569; 73718-RT; 75710; 80048; 80053; 82962; 83735; 84145; 85025; 85610; 87015; 87040; 87070; 87075; 87077; 87102; 87116; 87186; 87205; 93005; 93923; 94640; 97161-GP; A9270-GY; C1751; C1769; C1894; G8978-CH-GP; G8979-CH-GP; G8980-CH-GP; J0330; J0692; J2250; J2370; J2405; J2710; J3010; J3370; Q9967